=== PATIENT | male | born 1960 | race Caucasian/White ===

== ENCOUNTER 2017-03-04 19:11 | Emergency (ER) | payer OTHER, MEDICAID ==
[~2017-03-04] VITALS: Ht 172.7 cm; Wt 83.9 kg
[~2017-03-04 19:11] MED LIST: INSU3INS6 SUBCUT; LISI-603 PO; METF500T PO; SIMV20TA6 PO
[2017-03-04 19:15] VITALS: BP 142/85
[2017-03-04] MEDS ORDERED: predniSONE 20 MG TABLET PO ONE (20:00)
[2017-03-04] MEDS ORDERED: ALBUTEROL FS 2.5 MG/3 ML VIAL.NEB NEB ONE (20:00)
[2017-03-04] MEDS ORDERED: IPRATROPIUM NEB FS 0.5 MG/2.5 ML AMPUL.NEB NEB ONE (20:00)
[2017-03-04] MEDS ORDERED: ALBUTEROL FS 2.5 MG/3 ML VIAL.NEB ONE (20:10)
[2017-03-04] MEDS ORDERED: IPRATROPIUM NEB FS 0.5 MG/2.5 ML AMPUL.NEB ONE (20:10)
[2017-03-04] MEDS ORDERED: predniSONE 20 MG TABLET ONE (20:13)
--- NOTE | 2017-03-04 20:14 | NUR ---
RADIOLOGY AT BEDSIDE FOR CHEST XRAY.
== END 2017-03-04 21:28 | disposition home or self-care (01) ==
LOC: ER 19:13
DX: J43.9 Emphysema, unspecified (principal); E11.9 Type 2 diabetes mellitus without complications; E78.00 Pure hypercholesterolemia, unspecified; F17.200 Nicotine dependence, unspecified, uncomplicated; I10 Essential (primary) hypertension; J44.9 Chronic obstructive pulmonary disease, unspecified; Z79.4 Long term (current) use of insulin
CPT/HCPCS: 71045-TC; A4606; Z7610

== ENCOUNTER 2022-11-01 20:47 | Emergency (ER) | payer MEDICARE, OTHER ==
[~2022-11-01] VITALS: Ht 170.2 cm; Wt 81.6 kg
[~2022-11-01 20:47] MED LIST changes: -LISI-603 PO; +LISI20TA30 PO; +SIMV-46 PO; -SIMV20TA6 PO
[2022-11-01] MEDS ORDERED: KETOROLAC TROMETHAMINE INJ 30 MG/ML VIAL IM ONE (21:30)
[2022-11-01] MEDS ORDERED: ACETAMINOPHEN 325 MG TABLET PO ONE (21:30)
[2022-11-01] MEDS ORDERED: KETOROLAC TROMETHAMINE INJ 30 MG/ML VIAL ONE (21:37)
[2022-11-01] MEDS ORDERED: ACETAMINOPHEN 325 MG TABLET ONE (21:37)
[2022-11-01] MEDS ORDERED: IBUP-1955 PO (22:29)
[2022-11-01] MEDS ORDERED: PERM60CR4 TP (22:29)
[2022-11-01 22:43] VITALS: BP 128/71; TEMP 98.5; O2SAT 100
== END 2022-11-01 22:43 | disposition home or self-care (01) ==
LOC: ER 20:51
DX: M25.562 Pain in left knee (principal); M25.561 Pain in right knee; E78.5 Hyperlipidemia, unspecified; I10 Essential (primary) hypertension; J44.9 Chronic obstructive pulmonary disease, unspecified; E11.9 Type 2 diabetes mellitus without complications; F17.200 Nicotine dependence, unspecified, uncomplicated; Z98.890 Other specified postprocedural states; Z79.899 Other long term (current) drug therapy; Z79.4 Long term (current) use of insulin; Z60.2 Problems related to living alone; W18.39XA Other fall on same level, initial encounter; W57.XXXA Bitten or stung by nonvenomous insect and other nonvenomous arthropods, initial encounter; Y93.89 Activity, other specified; Y92.89 Other specified places as the place of occurrence of the external cause; Y99.8 Other external cause status
CPT/HCPCS: 99283; 96372; 73564 ×2; J1885

== ENCOUNTER 2024-04-29 21:13 | Emergency (ER) | payer MEDICARE, OTHER ==
[~2024-04-29] VITALS: Ht 170.2 cm; Wt 81.6 kg
[~2024-04-29 21:13] MED LIST changes: +IBUP-1955 PO; +PERM60CR4 TP
[2024-04-29 22:55] LABS: BASOPHILS # (AUTO) 0.1 K/uL (0.0-0.2); EOSINOPHILS # (AUTO) 0.3 K/uL (0.0-0.7); EOSINOPHILS % (AUTO) 5.4 % (0.0-6.0); HEMATOCRIT 41 % (39-51); HEMOGLOBIN 13.8 g/dL (13.5-17.5); LYMPHOCYTES # (AUTO) 1.6 K/uL (0.8-4.8); LYMPHOCYTES % (AUTO) 26.7 % (20.0-44.0); MEAN CORPUSCULAR HEMOGLOBIN 30 PG (26.0-33.0); MEAN CORPUSCULAR HGB CONC 34 g/dl (31.0-36.0); MEAN CORPUSCULAR VOLUME 89 fL (80-96); MONOCYTES # (AUTO) 0.5 K/uL (0.1-1.30); MONOCYTES % (AUTO) 8.8 % (2.0-12.0); NEUTROPHILS # (AUTO) 3.5 K/uL (1.8-8.9); NEUTROPHILS % (AUTO) 58.1 % (43.0-81.0); PLATELET COUNT (AUTO) 191 K/uL (150-450); RED CELL DISTRIBUTION WIDTH 12.9 % (11.5-15.0); WHITE BLOOD COUNT (AUTO) 6.1 K/uL (4.3-11.0)
[2024-04-29 23:08] LABS: CARBON DIOXIDE 32 mmol/L (21-32); CHLORIDE 101 mmol/L (98-107); GLUCOSE 288 mg/dL (74-106); POTASSIUM 4.8 mmol/L (3.5-5.1); SODIUM SERUM 135 mmol/L (136-145); UREA NITROGEN, BLOOD 21 mg/dL (7-18)
[2024-04-29 23:21] LABS: NT-PRO BNP 102 pg/mL (0-125)
[2024-04-30 01:44] VITALS: BP 148/57; TEMP 98.5; O2SAT 99
== END 2024-04-30 01:44 | disposition home or self-care (01) ==
LOC: ER 21:14
DX: R07.89 Other chest pain (principal); I10 Essential (primary) hypertension; E11.65 Type 2 diabetes mellitus with hyperglycemia; E78.00 Pure hypercholesterolemia, unspecified; F17.200 Nicotine dependence, unspecified, uncomplicated; J43.9 Emphysema, unspecified; Z79.84 Long term (current) use of oral hypoglycemic drugs; Z79.899 Other long term (current) drug therapy; Z60.2 Problems related to living alone
CPT/HCPCS: 36415; 71045-TC; 80048-TC; 83880; 84484-TC; 85025-TC; 85378-TC